=== PATIENT | female | born 1965 | race Caucasian/White ===

== ENCOUNTER 2017-10-11 20:30 | Inpatient (IN) | payer BC ==
[~2017-10-11] VITALS: Ht 165.1 cm; Wt 87.5 kg
--- NOTE | ~2017-10-11 | HEMODYNAMI ---
PATIENT:ANABEL STERN MEDICAL RECORD: [id number] : 67 LOCATION:[facility] D.2307 ADMISSION DATE: 10/11/17 Generatedon:10/12/201722:32 Patient name: ANABEL STERN Patient #: [id number] SSN: : 1965 Date of study: 10/12/2017 Page: Of Hemodynamic Procedure Report Patient Data Patient Demographics Procedure consent was obtained First Name: ANABEL Gender: Female Last Name: LEENA : 1965 Patient #: [id number] Age: 52 year(s) Race: Unknown Additional ID: [id number] Contact details [address]: [address] [place] [address] State: [place] City: [place] Zip code: [address] Admission Admission Data Admission Date: 10/11/2017 Admission Time: 20:41 Room #: D.2307 Weight (lbs.): 194 Weight (kg.): 88 Procedure Procedure Types Cath Procedure Peripheral Cath Diagnostic Procedure Abd/Extremity Visceral/Mesenteric Procedure Description Procedure Date Procedure Date: 10/12/2017 Procedure Start Time: 21:17 Procedure Staff Name Function Billy Donato MD Performing Physician Jesus Manuel Li MD Performing Physician Maame Villatoro RT Ripening Room Operator Maame Villatoro RT Monitor Ariana Benson RN Nurse Gilles Shirley RT Scrub Procedure Data Cath Procedure Fluoroscopy Diagnostic fluoroscopy Total fluoroscopy Time: time: 16.8 min 16.8 min Diagnostic fluoroscopy Total fluoroscopy dose: dose: 3952 mGy 3952 mGy Contrast Material Contrast Material Type Amount (ml) Isovue 300 0 Isovue 300 165 Diagnostic catheters Device Type Used For End Catheter Placement Angiodynamics SOS OMNI 2 NON B 5FR 65CM catheter ([id number]) Procedure Medications Medication Administration Route Dosage Lidocaine 1% added to field 20 Heparin Flush Bag added to field 3 bags (1000units/500ml NS) Oxygen NC 3 l/min Fentanyl I.V. 25 mcg Versed I.V. 1 mg Fentanyl I.V. 50 mcg Versed I.V. 1 mg Fentanyl I.V. 25 mcg Nitroglycerin IC/IA I.A. 200 mcg Hemodynamics Rest Pre Cath Intra NCS Post Cath Vital Signs Time Heart Resp SPO2 etCO2 NIBP Rhythm Pain Status Sedation Rate (ipm) (%) (mmHg) (mmHg) Level (bpm) 21:12:53 99 16 100 17.2 107/60(74) NSR 0 (11) , No 10(A) pain 21:17:05 101 17 100 15.7 107/54(76) ST 0 (11) , No 10(A) pain 21:21:13 103 19 100 9 100/63(80) ST 0 (11) , No 8(A) pain 21:25:21 101 14 100 9 107/59(76) ST 0 (11) , No 8(A) pain 21:29:31 98 15 99 21 109/57(78) NSR 0 (11) , No 8(A) pain 21:33:39 98 15 99 21.7 105/61(77) NSR 0 (11) , No 8(A) pain 21:37:54 95 15 99 23.2 107/62(82) NSR 0 (11) , No 8(A) pain 21:42:02 96 15 99 23.2 110/65(82) NSR 0 (11) , No 8(A) pain 21:46:10 98 15 99 24.7 115/66(82) NSR 0 (11) , No 8(A) pain 21:50:20 93 19 99 24 115/65(84) NSR 0 (11) , No 8(A) pain 21:54:28 95 13 99 25.5 108/61(80) NSR 0 (11) , No 8(A) pain 21:58:36 96 16 98 25.5 117/67(85) NSR 2 (11) , 8(A) Uncomfortable 22:02:44 97 16 99 11.2 122/72(91) NSR 2 (11) , 8(A) Uncomfortable 22:07:43 98 15 98 8.2 Measuring NSR 2 (11) , 8(A) Uncomfortable 22:07:49 99 15 98 7.5 107/63(82) NSR 2 (11) , 8(A) Uncomfortable 22:11:57 102 14 98 1.5 111/59(85) ST 2 (11) , 8(A) Uncomfortable 22:16:06 100 15 97 24.7 107/59(82) NSR 2 (11) , 8(A) Uncomfortable 22:20:14 95 18 100 19.5 101/68(84) NSR 2 (11) , 8(A) Uncomfortable 22:24:22 99 16 99 3.7 103/55(71) NSR 2 (11) , 8(A) Uncomfortable 22:28:26 96 16 100 1.5 100/57(75) NSR 2 (11) , 8(A) Uncomfortable Medications Time Medication Route Dose Verified Delivered Reason Notes Ef fectiveness by by 21:02:12 Lidocaine 1% added 20ml Ariana Donato for local to vial Marcelino HIGGINBOTHAM MD anesthetic field 21:02:47 Heparin Flush added 3 bags Ariana Donato used for Bag to Marcelino HIGGINBOTHAM MD procedure (1000units/500ml field NS) 21:03:02 Oxygen NC 3 Ariana Ariana used for l/min Marcelino Benson RN procedure 21:19:33 Fentanyl I.V. [address] for Do jackeline Benson RN sedation intermittently @ 21:29:40 21:19:45 Versed I.V. [address] for Do jackeline Benson RN sedation intermittently @ 21:29:37 22:01:00 Fentanyl I.V. [address] for Do jackeline Benson RN sedation intermittently @ 22:07:33 22:01:20 Versed I.V. [address] for Do jackeline Benson RN sedation intermittently @ 22:07:36 22:07:27 Fentanyl I.V. [address] for Mo stly MD Marcelino HIGGINBOTHAM sedation sleeping @ 22:12:23 22:12:05 Nitroglycerin I.A. 200mcg Billy Donato Per IC/IA MD MORGAN protocol Procedure Log Time Note 20:52:06 Patient Weight : 194 lbs 20:52:46 Use device set IR Diagnostic 20:57:03 TORQUE DEVICE PLASTIC .038 ( TD01) opened to sterile field. 20:57:04 TUBING Contrast Injection High Pressure (YZZ118G) opened to sterile field. 20:57:05 DOC .035 wire (R15454) opened to sterile field. 20:57:06 GLIDE WIRE ANGLE 180cm (ZK2342) opened to sterile field. 20:57:07 Micropuncture VSI 4FR kit opened to sterile field. 20:57:07 SHEATH 5FR [place] (RIP571) opened to sterile field. 20:57:08 Sterile Angiographic Pack opened to sterile field. 20:57:09 Bag Decanter (2002S) opened to sterile field. 20:57:10 ACIST Manifold (33755) opened to sterile field. 20:57:12 ACIST Hand Control (14544) opened to sterile field. 20:57:13 ACIST Syringe (61252) opened to sterile field. 20:57:20 Time tracking: Call back 20:58:41 Plan of Care:Hemodynamics will remain stable., Cardiac rhythm will remain stable., Comfort level will be maintained., Respiratory function will remain adequate., Patient/ family verbilizes understanding of procedure., Procedure tolerated without complication., Recovers from procedure without complications.. 20:58:48 Patient received from ICU to IR Alert and oriented. Tansferred to table in Supine position. 20:58:50 Correct patient and procedure confirmed by team. 20:58:52 Signed procedure consent form obtained from patient. 20:58:59 H&P Date Dictated: 10/12/2017 Within 30 days and on chart.. 20:59:02 Pre-procedure instructions explained to patient. 20:59:03 Pre-op teaching completed and patient verbalized understanding. 20:59:05 Family in waiting room. 20:59:18 Patient NPO since Midnight. 21:00:12 allergic to hydrocodone 21:00:20 Is the patient allergic to Iodine/contrast media? No. 21:00:23 Is patient on blood thinner?No 21:00:27 Patient diabetic? No. 21:00:32 - 21:00:33 ----Pre-sedation anethsthesia assessment.---- 21::36 Previous problem with sedation/anesthesia? No ? 21:00:40 Snore? Yes :00:42 Sleep apnea? No ::43 Deviated septum? No ::46 Opens mouth fully? Yes :00:48 Sticks out tongue? Yes ::51 Airway obstruction? No ? 21:00:55 Dentures? No ? ::23 Pre procedure: right dorsailis pedis pulse 1+ Palpable, but thready & weak; easily obliterated :: Pre procedure: right posterior tibial pulse 1+ Palpable, but thready & weak; easily obliterated 21::35 IV patent on arrival in right forearm with D5/.45%NaCl at KVO. ::44 IV patent on arrival in left forearm with D5/.45%NaCl at KVO. ::52 Right groin area was prepped with chlora-prep and draped in sterile fashion ::56 - ::12 Lidocaine 1% 20ml vial added to field was administered by Billy Donato MD; for local anesthetic; ::47 Heparin Flush Bag (1000units/500ml NS) 3 bags added to field was administered by Billy Donato MD; used for procedure; : Oxygen 3 l/min NC was administered by Ariana Benson RN; used for procedure; ::04 - :57 Vital chart was started 21:15:43 Physician arrived 21:15:51 --------ALL STOP TIME OUT------ :52 Final Timeout: patient, procedure, and site verified with staff and physician. All members of the team are in agreement. 21:17:21 A Angiodynamics SOS OMNI 2 NON B 5FR 65CM catheter ([id number]) was advanced over the wire and used for . :17:29 Procedure started. 21:17:30 Full Disclosure recording started 21:17:56 Local anesthetic to right femoral artery with Lidocaine 1% by Billy Donato MD.INITIAL ACCESS ONLY 21:18:01 Arterial access obtained using ultrasound guidance. 21:19:33 Fentanyl 25 mcg I.V. was administered by Ariana Benson RN; for sedation; ::45 Versed 1 mg I.V. was administered by Ariana Benson RN; for sedation; :28:19 TRANSEND STEERABLE wire ([id number]) opened to sterile field. 21:28:[address]C STRAIGHT microcatheter ([id number]) opened to sterile field. 21:28:21 COPILOT Valve Control (4425563) opened to sterile field. 21:29:37 Effectiveness of Versed delivered @ :19:45 is: Dozing intermittently :29:40 Effectiveness of Fentanyl delivered @ :19:33 is: Dozing intermittentl y :45:21 GLIDE WIRE GT DOUBLE ANGLE .018 ([id number]) opened to sterile field. 22:01:00 Fentanyl 50 mcg I.V. was administered by Ariana Benson RN; for sedation; 22:01:14 ROBERTO 180cm wire (L86766) opened to sterile field. 22:01:16 GLIDE CATHETER 5FR COBRA 65cm (CG502) opened to sterile field. 22:01:20 Versed 1 mg I.V. was administered by Ariana Benson RN; for sedation; ::27 Fentanyl 25 mcg I.V. was administered by Ariana Benson RN; for sedation; ::33 Effectiveness of Fentanyl delivered @ 22:01:00 is: Dozing intermittentl y 22:07:36 Effectiveness of Versed delivered @ 22:01:20 is: Dozing intermittently 22:12:05 Nitroglycerin IC/IA 200mcg I.A. was administered by Billy Donato MD; Per protocol; :12:23 Effectiveness of Fentanyl delivered @ :07:27 is: Mostly sleeping 22:21:53 SUTURE ETHILON 2-0 BLK MONO FS opened to sterile field. 22:22:00 Tegaderm 4 x 4 (1626W) opened to sterile field. 22:24:13 Procedure ended.(Physican Out) 22:24:49 Fluoroscopy time 16.80 minutes. 22:24:54 Fluoroscopy dose: 3952 mGy 22:24:54 Flurop Dose total: 3952 22:25:20 Contrast amount:Isovue 300 0ml. 22:25:55 Contrast amount:Isovue 300 165ml. 22:31:42 Procedure and supply charges have been captured, reviewed, submitted an d are correct. 22:32:04 Vital chart was stopped Device Usage Item Name Manufacture Quantity Catalog Hospital Part Current Mini mal Lot# / Number Charge Number Stock Stock Serial# Code TORQUE DEVICE [place] 1 TD01 062003 556312 640608 5 PLASTIC .038 Scientific ( TD01) TUBING [facility] 1 [id number] 394675 134583 948156 5 Contrast Injection High Pressure (ZVK863U) DOC .035 wire [employer] 1 S03148 209298 535588 5 5452289 ([id number]) GLIDE WIRE Terum[employer] 1 LX3643 672169 509183 670164 5 ANGLE 180cm (WU3309) Micropuncture VSI VASCULAR 1 7266V 052434 321635 5 VSI 4FR kit SOLUTIONS SHEATH 5FR [employer] 1 WKT223 687205 283715 130450 40 [place] (ERM558) Sterile Cardinal 1 [id number] 501865 655236 5 Angiographic Health Pack Bag Decanter Microtek 1 783774 32466 953145 5 () Medical Inc. ACIST [employer] 1 69613 803481 182844 185385 5 Manifold Systems Inc (61710) ACIST Hand [employer] 1 06739 917853 953275 185381 5 Control Systems Inc (61867) ACIST Syringe [employer] 1 36857 132293 061849 320476 20 (91729) Systems Inc Angiodynamics Angiodynamics 1 [id number] 981423 56295 173206 5 SOS OMNI 2 NON B 5FR 65CM catheter (74194069) TRANSEND [employer] 1 [id number] 660216 764995 5 STEERABLE Scientific wire ([id number]) RENEGADE STC [place] 1 [id number] 601028 638217 5 STRAIGHT Scientific microcatheter ([id number]) COPILOT Valve Tom 1 6284756 364165 809243 967147 5 Control Vascular (2324020) GLIDE WIRE GT [employer] 1 [id number] 829601 099541 5 DOUBLE ANGLE .018 (RG*BD4682BU) ROBERTO 180cm [employer] 1 Q76652 645564 769320 5 [id number] wire (Z79827) GLIDE [employer]o 1 CG502 822755 493176 5 CATHETER 5FR COBRA 65cm (CG502) SUTURE Ethicon 1 664H 706299 742129 5 ETHILON 2-0 BLK MONO FS Tegaderm 4 x 3M 1 1626W 485129 362755 270767 5 4 (1626W) Signature Audit Crumrod Stage Time Signature Unsigned Intra-Procedure 10/12/2017 Maame Villatoro 10:32:01 PM RT(R) Signatures Monitor : Maame Villatoro RT Signature : Date : Time : [facility] [address] [place] [address]
[2017-10-11] MEDS ORDERED: FOLIC ACID1 MG PO (21:57)
[2017-10-11] MEDS ORDERED: NORVASC10 MG PO (21:58)
[2017-10-11] MEDS ORDERED: DIOVAN HCT 160/1 TA1 PO (21:59)
[2017-10-12] VITALS (14 sets, daily range): BP systolic 87–118; BP diastolic 42–88; Ht 165.1 cm; Wt 87.5 kg
[2017-10-12 00:44] LABS: HEMATOCRIT 21.4 % (36.0-48.0)
[2017-10-12 00:49] LABS: HEMOGLOBIN 7.4 g/dL (12-16)
[2017-10-12 06:29] LABS: EOSINOPHILS 3.7 % (0-7); IMMATURE GRANULOCYTES 0.3 % (0-5); LYMPHOCYTES 35.7 % (15-50); MCH 31.8 pg (26.0-34.0); MCV 93.5 fL (80.0-100.0); MEAN PLATELET VOLUME 11.1 fL (7.4-10.4); MONOCYTES 8.6 % (2-11); NEUTROPHILS 50.7 % (40-80); PLATELET COUNT 114 10x3/uL (130-400); RBC 2.14 10x6/uL (4.00-5.40); RDW 13.4 % (11.5-14.5); WBC 11.5 10x3/uL (4.8-10.8)
[2017-10-12 06:35] LABS: HEMOGLOBIN 6.8 g/dL (12-16)
[2017-10-12 06:44] LABS: ALBUMIN 2.5 g/dL (3.4-5.0); ALKALINE PHOSPHATASE 69 U/L (46-116); ALT (SGPT) 49 U/L (10-68); BILIRUBIN - TOTAL 0.95 mg/dL (0.2-1.3); CALC OSMOLALITY 285 mosm/kg (275-300); CALCIUM 7.1 mg/dL (8.5-10.1); CARBON DIOXIDE 25.9 mmol/L (21.0-32.0); CHLORIDE - SERUM 106 mmol/L (98-107); CREATININE - SERUM 0.6 mg/dL (0.6-1.3); GLUCOSE 108 mg/dL (74-106); POTASSIUM - SERUM 3.5 mmol/L (3.5-5.1); PROTEIN - SERUM 5.7 g/dL (6.4-8.2); SODIUM 142 mmol/L (136-145); UREA NITROGEN 17 mg/dL (7-18); eGFR NON AFRICAN AMERICAN > 90 mL/min (90-120)
[2017-10-12 08:42] LABS: APTT 33.9 SECONDS (22.8-39.4); INR 1.24 (0.85-1.17); PROTIME 15.2 SECONDS (11.6-15.0)
[2017-10-12 12:30] LABS: HEMATOCRIT 17.3 % (36.0-48.0)
[2017-10-12 19:57] LABS: HEMATOCRIT 21.1 % (36.0-48.0); HEMOGLOBIN 7.3 g/dL (12-16)
[2017-10-13] VITALS (24 sets, daily range): BP systolic 107–142; BP diastolic 58–85
[2017-10-13 00:31] LABS: HEMATOCRIT 21.9 % (36.0-48.0)
[2017-10-13 00:32] LABS: HEMOGLOBIN 7.5 g/dL (12-16)
[2017-10-13 08:51] LABS: BASOPHILS 0.5 % (0-2); EOSINOPHILS 3.2 % (0-7); IMMATURE GRANULOCYTES 1.2 % (0-5); LYMPHOCYTES 22.2 % (15-50); MCH 29.9 pg (26.0-34.0); MEAN PLATELET VOLUME 9.8 fL (7.4-10.4); NEUTROPHILS 63.9 % (40-80); PLATELET COUNT 101 10x3/uL (130-400); RDW 15.3 % (11.5-14.5); WBC 9.5 10x3/uL (4.8-10.8)
[2017-10-13 09:06] LABS: HEMATOCRIT 29.4 % (36.0-48.0); MCV 87.8 fL (80.0-100.0); RBC 3.35 10x6/uL (4.00-5.40)
[2017-10-13 09:16] LABS: INR 1.16 (0.85-1.17); PROTIME 14.4 SECONDS (11.6-15.0)
[2017-10-13 09:37] LABS: ALBUMIN 2.5 g/dL (3.4-5.0); ALKALINE PHOSPHATASE 65 U/L (46-116); BILIRUBIN - TOTAL 1.01 mg/dL (0.2-1.3); CARBON DIOXIDE 23.8 mmol/L (21.0-32.0); CHLORIDE - SERUM 109 mmol/L (98-107); CREATININE - SERUM 0.5 mg/dL (0.6-1.3); GLUCOSE 97 mg/dL (74-106); PHOSPHOROUS 2.7 mg/dL (2.5-4.9); PROTEIN - SERUM 5.7 g/dL (6.4-8.2); SODIUM 142 mmol/L (136-145); eGFR NON AFRICAN AMERICAN > 90 mL/min (90-120)
[2017-10-13 09:46] LABS: CALC OSMOLALITY 282 mosm/kg (275-300); UREA NITROGEN 12 mg/dL (7-18)
[2017-10-13 09:47] LABS: ALT (SGPT) 69 U/L (10-68); CALCIUM 6.7 mg/dL (8.5-10.1); POTASSIUM - SERUM 4.2 mmol/L (3.5-5.1)
[2017-10-13 13:55] LABS: BASOPHILS 0.7 % (0-2); EOSINOPHILS 3.6 % (0-7); HEMATOCRIT 28.2 % (36.0-48.0); HEMOGLOBIN 9.7 g/dL (12-16); IMMATURE GRANULOCYTES 1.1 % (0-5); LYMPHOCYTES 22.4 % (15-50); MCH 30.2 pg (26.0-34.0); MCHC 34.4 g/dL (31.0-37.0); MCV 87.9 fL (80.0-100.0); MEAN PLATELET VOLUME 10.5 fL (7.4-10.4); MONOCYTES 7.1 % (2-11); NEUTROPHILS 65.1 % (40-80); PLATELET COUNT 103 10x3/uL (130-400); RBC 3.21 10x6/uL (4.00-5.40); RDW 15.7 % (11.5-14.5); WBC 9.2 10x3/uL (4.8-10.8)
[2017-10-13 19:55] LABS: HEMATOCRIT 28.5 % (36.0-48.0); HEMOGLOBIN 9.8 g/dL (12-16)
[2017-10-14] VITALS (24 sets, daily range): BP systolic 103–148; BP diastolic 58–88
[2017-10-14 00:13] LABS: HEMATOCRIT 27.2 % (36.0-48.0); HEMOGLOBIN 9.6 g/dL (12-16)
[2017-10-14 05:44] LABS: HEMATOCRIT 27.1 % (36.0-48.0); HEMOGLOBIN 9.4 g/dL (12-16)
[2017-10-14 12:47] LABS: BASOPHILS 0.6 % (0-2); EOSINOPHILS 3.3 % (0-7); LYMPHOCYTES 19.2 % (15-50); MCH 30.7 pg (26.0-34.0); MCHC 34.7 g/dL (31.0-37.0); MCV 88.4 fL (80.0-100.0); MEAN PLATELET VOLUME 10.2 fL (7.4-10.4); MONOCYTES 8.9 % (2-11); PLATELET COUNT 98 10x3/uL (130-400); RDW 15.4 % (11.5-14.5); WBC 10.4 10x3/uL (4.8-10.8)
[2017-10-14 12:51] LABS: HEMATOCRIT 35.2 % (36.0-48.0); HEMOGLOBIN 12.2 g/dL (12-16); RBC 3.98 10x6/uL (4.00-5.40)
[2017-10-14 18:07] LABS: HEMOGLOBIN 11.8 g/dL (12-16)
[2017-10-14 19:21] LABS: HEMATOCRIT 33.9 % (36.0-48.0)
[2017-10-15] VITALS (18 sets, daily range): BP systolic 104–140; BP diastolic 51–90
[2017-10-15 04:56] LABS: BASOPHILS 0.4 % (0-2); EOSINOPHILS 2.1 % (0-7); HEMATOCRIT 34.6 % (36.0-48.0); HEMOGLOBIN 11.9 g/dL (12-16); LYMPHOCYTES 15.3 % (15-50); MCH 30.7 pg (26.0-34.0); MCHC 34.4 g/dL (31.0-37.0); MCV 89.4 fL (80.0-100.0); MONOCYTES 9.4 % (2-11); NEUTROPHILS 71.8 % (40-80); PLATELET COUNT 111 10x3/uL (130-400); RBC 3.87 10x6/uL (4.00-5.40); WBC 10.4 10x3/uL (4.8-10.8)
[2017-10-15 05:32] LABS: ALBUMIN 2.5 g/dL (3.4-5.0); ALKALINE PHOSPHATASE 66 U/L (46-116); ALT (SGPT) 60 U/L (10-68); CALCIUM 7.7 mg/dL (8.5-10.1); CARBON DIOXIDE 23.8 mmol/L (21.0-32.0); CHLORIDE - SERUM 106 mmol/L (98-107); CREATININE - SERUM 0.5 mg/dL (0.6-1.3); GLUCOSE 124 mg/dL (74-106); POTASSIUM - SERUM 3.7 mmol/L (3.5-5.1); PROTEIN - SERUM 6.1 g/dL (6.4-8.2); SODIUM 140 mmol/L (136-145); eGFR NON AFRICAN AMERICAN > 90 mL/min (90-120)
[2017-10-15 05:33] LABS: CALC OSMOLALITY 276 mosm/kg (275-300); UREA NITROGEN 4 mg/dL (7-18)
[2017-10-15 12:54] LABS: HEMATOCRIT 34.5 % (36.0-48.0); HEMOGLOBIN 11.8 g/dL (12-16)
[2017-10-15 19:49] LABS: HEMATOCRIT 34.2 % (36.0-48.0); HEMOGLOBIN 11.6 g/dL (12-16)
[2017-10-16] VITALS: BP 124/71
[2017-10-16 04:22] VITALS: BP 117/65
[2017-10-16 04:24] LABS: BASOPHILS 0.5 % (0-2); EOSINOPHILS 2.6 % (0-7); HEMATOCRIT 32.8 % (36.0-48.0); HEMOGLOBIN 10.9 g/dL (12-16); IMMATURE GRANULOCYTES 0.6 % (0-5); MCH 30.2 pg (26.0-34.0); MCHC 33.2 g/dL (31.0-37.0); MCV 90.9 fL (80.0-100.0); MEAN PLATELET VOLUME 11.4 fL (7.4-10.4); MONOCYTES 9.4 % (2-11); NEUTROPHILS 65.9 % (40-80); PLATELET COUNT 122 10x3/uL (130-400); RBC 3.61 10x6/uL (4.00-5.40); RDW 15.6 % (11.5-14.5); WBC 8.9 10x3/uL (4.8-10.8)
[2017-10-16 04:43] LABS: ALBUMIN 2.4 g/dL (3.4-5.0); ALKALINE PHOSPHATASE 89 U/L (46-116); ALT (SGPT) 48 U/L (10-68); BILIRUBIN - TOTAL 0.86 mg/dL (0.2-1.3); CALCIUM 7.8 mg/dL (8.5-10.1); CARBON DIOXIDE 26.9 mmol/L (21.0-32.0); CHLORIDE - SERUM 108 mmol/L (98-107); CREATININE - SERUM 0.5 mg/dL (0.6-1.3); GLUCOSE 133 mg/dL (74-106); POTASSIUM - SERUM 3.8 mmol/L (3.5-5.1); PROTEIN - SERUM 5.8 g/dL (6.4-8.2); SODIUM 141 mmol/L (136-145); eGFR NON AFRICAN AMERICAN > 90 mL/min (90-120)
[2017-10-16 04:48] LABS: CALC OSMOLALITY 280 mosm/kg (275-300); UREA NITROGEN 7 mg/dL (7-18)
[2017-10-16 07:32] VITALS: BP 136/79
[2017-10-16] MEDS ORDERED: PROTONIX40 MG PO (11:16)
[2017-10-16] MEDS ORDERED: FLAGYL500 MG PO (11:17)
[2017-10-16 11:44] LABS: HEMOGLOBIN 11.2 g/dL (12-16)
== END 2017-10-16 12:49 | disposition home or self-care (01) | DRG 378 ==
LOC: D.MS 20:30 → D.ICU 20:41 → D.MS 10-15 13:05
PROVIDERS: Family Medicine; General Practice; Internal Medicine Gastroenterology; Radiology Diagnostic Radiology; Radiology Vascular & Interventional Radiology
PROC: B4151ZZ Fluoroscopy of Inferior Mesenteric Artery using Low Osmolar Contrast (ICD-10-PCS; 2017-10-12)
PROC: B4141ZZ Fluoroscopy of Superior Mesenteric Artery using Low Osmolar Contrast (ICD-10-PCS; 2017-10-12)
PROC: 0DB78ZX Excision of Stomach, Pylorus, Via Natural or Artificial Opening Endoscopic, Diagnostic (ICD-10-PCS; principal; 2017-10-12 17:00)
PROC: 3E1H88Z Irrigation of Lower GI using Irrigating Substance, Via Natural or Artificial Opening Endoscopic (ICD-10-PCS; 2017-10-15)
DX: K92.2 Gastrointestinal hemorrhage, unspecified (principal); D62 Acute posthemorrhagic anemia; K63.3 Ulcer of intestine; K70.30 Alcoholic cirrhosis of liver without ascites; I10 Essential (primary) hypertension; K29.70 Gastritis, unspecified, without bleeding; K44.9 Diaphragmatic hernia without obstruction or gangrene; K29.80 Duodenitis without bleeding; D12.0 Benign neoplasm of cecum; Z72.0 Tobacco use